=== PATIENT | female | born 1950 | race Caucasian/White ===

== ENCOUNTER → 2017-08-14 | Outpatient (CLI) | payer MEDICARE, BC ==
[~2017-08-14] MED LIST: CITRACAL ULTRAD1 TA1 PO; GLUCOPHAGE500 MG/TAB PO; HCTZ 25MG TAB25 MG PO; MULTIPLE VITAMI1 CAP PO; NEURONTIN100 MG/CAP PO; PRINIVIL20 MG PO; TOPROL XL 25MG25 MG PO; TRAVATAN Z 2.52.5 ML OU; VITAMINC1000TA
== END ==
LOC: COL.VAS 14:18
DX: M79.662 Pain in left lower leg (principal); R60.0 Localized edema

== ENCOUNTER 2018-02-02 08:21 | Outpatient (CLI) | payer MEDICARE, BC ==
[~2018-02-02] VITALS: Ht 162.6 cm; Wt 111.4 kg
[~2018-02-02 08:21] MED LIST changes: +CITRACAL PETITE1 TAB PO; -CITRACAL ULTRAD1 TA1 PO; +MYRBETR50MG PO
[2018-02-02] MEDS ORDERED: NEURONTIN300 MG/CAP PO (08:48)
[2018-02-02] MEDS ORDERED: TROCHE BASE1 PEL PO ×2 (08:51)
[2018-02-02 08:54] VITALS: BP 136/77; PULSE 58
[2018-02-02 10:45] VITALS: BP 127/63; PULSE 58
[2018-02-02 10:49] VITALS: BP 127/63; PULSE 53
[2018-02-02 11:05] VITALS: BP 115/68; PULSE 52
[2018-02-02 11:30] VITALS: BP 115/53; PULSE 53
[2018-02-02 12:15] VITALS: BP 120/62; PULSE 51
== END 2018-02-02 12:25 | disposition home or self-care (01) ==
LOC: COL.RAD 08:21
DX: M47.27 Other spondylosis with radiculopathy, lumbosacral region (principal); E66.9 Obesity, unspecified
CPT/HCPCS: Q9965

== ENCOUNTER → 2019-06-15 | Outpatient (CLI) | payer MEDICARE, BC ==
[~2019-06-15] MED LIST changes: +NEURONTIN300 MG/CAP PO; +TROCHE BASE1 PEL PO
== END ==
LOC: COL.VAS 14:38
DX: R60.0 Localized edema (principal)